=== PATIENT | female | born 1980 | race Caucasian/White ===

== ENCOUNTER 2024-04-22 14:31 | Emergency (ER) | payer MEDICARE, SELFPAY ==
[2024-04-22 14:35] VITALS: BP 175/119; PULSE 107; RESP 18; TEMP 36.7; O2SAT 98; BMI 44.9
[2024-04-22 15:01] LABS: Basophils Percent Auto 0.2 % (0.0-3.0); Eosinophils Percent Auto 0.8 % (0.0-7.0); Hematocrit 44.5 % (33.0-51.0); Hemoglobin* 14.9 gm/dL (12.0-16.0); Immature Granulocytes Pct Auto 1.2 %; Lymphocytes Percent Auto 18.3 % (20-44); Mean Corpuscular HGB Conc 34 gm/dL (32-36); Mean Corpuscular Hemoglobin 28 pg (26-34); Mean Corpuscular Volume 85 fL (80-100); Monocytes Percent Auto 5.7 % (0.0-11.0); Neutrophils Percent Auto 73.8 % (42.0-72.0); Platelet Count* 264 K/uL (140-440); RDW Coefficient of Variation % 12.7 % (11.5-15.5); Red Blood Count 5.26 m/uL (4.00-5.20); White Blood Count* 13.08 K/uL (4.50-11.00)
--- NOTE | 2024-04-22 15:03 | ED_ITS ---
HPI - General Adult General Date Seen: 04/22/24 <Fredyd Cornejo DO - Last Filed: 04/22/24 20:41> Chief complaint: Psychiatric Problem/Disorder <Freddy Cornejo DO - Last Filed: 04/22/24 20:41> Stated complaint: Altered Mental Status [place] <Freddy Cornejo DO - Last Filed: 04/22/24 20:41> Time Seen by Provider: 04/22/24 14:39 <Freddy Cornejo DO - Last Filed: 04/22/24 20:41> Source: EMS and police <Freddy Cornejo DO - Last Filed: 04/22/24 20:41> Mode of arrival: EMS <Freddy Cornejo DO - Last Filed: 04/22/24 20:41> Limitations: altered mental status <Freddy Cornejo DO - Last Filed: 04/22/24 20:41> History of Present Illness HPI narrative: Patient is believed to be a 44-year-old female presenting to the emergency department via EMS for seems to be a likely psychiatric issue. She has been in the [facility] for the past week living out of her van. Please have gotten several calls about her. She has been very aggressive toward others in finally today when they went to remove her from the public area they found dog P mats all around the car and within the car that she has been using to go to the bathroom on. She has also urinated within her clothes. When EMS tried to bring her and she started throwing objects at them. They were forced to give her ketamine to sedate her. When asked what her name is she states she does not know. She also does not know where she is or where she is from or how long she has been here. Police were able to get a name based on the registration for the van. They spoke to police in [place] where the car appears to be from. Those police then went to the residence on the registration. There other informed the patient moved out 6 months ago but does have a window caser. Currently trying to get hold of the window caser. Patient cannot answer ROS. EMS also states the patient has been having hallucinations claiming that she is being chased by guzmán and that her van is a space ship. <Freddy Cornejo DO - Last Filed: 04/22/24 20:41> Related Data Home medications: Home Medications ?Medication ?Instructions ?Recorded ?Confirmed Unobtainable 04/22/24 04/22/24 <Freddy Cornejo DO - Last Filed: 04/22/24 20:41> Allergies/adverse reactions: Allergies Allergy/AdvReac Type Severity Reaction Status Date / Time aspartame AdvReac Mild Headache Verified 04/23/24 19:09 morphine AdvReac Mild itching Verified 04/23/24 19:09 <Freddy Cornejo DO - Last Filed: 04/22/24 20:41> Review of Systems Status of ROS: Reports: unobtainable due to mental status <Freddy Cornejo DO - Last Filed: 04/22/24 20:41> Exam Narrative: Exam Narrative: Const: Obese, is appears very altered Eyes: PERRL, no conjunctival injection, and symmetrical lids HENT: Atraumatic external nose and ears. Moist mucous membranes. Neck: Symmetric, trachea midline, No thyromegaly. CVS: RRR, No murmurs or gallops. Peripheral pulses 2+ and equal in all extremities RESP: Unlabored respiratory effort. Clear to auscultation bilaterally. GI: Nontender/Nondistended, No rebound or guarding. MSK:Extremities w/o deformity, Normal Active ROM Skin: Warm, Dry. No rashes or lesions. Neuro: Normal Muscle tone, No focal neurological deficits. Psych: Awake, Alert, but is not oriented. Has not shown agitation. <Freddy Cornejo DO - Last Filed: 04/22/24 20:41> Const: Vital Signs, click to edit/add: Vital Signs - 24 hr 04/23/24 06:11 04/23/24 12:39 Temperature 97.8 F 98.3 F Pulse Rate [Pulse Oximeter] 79 80 Respiratory Rate 20 18 Blood Pressure [Ri ght Upper Arm] 145/84 H 144/104 H Pulse Oximetry 98 95 Oxygen Delivery Me thod Room Air Room Air <Freddy Cornejo DO - Last Filed: 04/22/24 20:41> Vital Signs, click to edit/add: Vital Signs - 24 hr 04/23/24 06:11 04/23/24 12:39 Temperature 97.8 F 98.3 F Pulse Rate [Pulse Oximeter] 79 80 Respiratory Rate 20 18 Blood Pressure [Ri ght Upper Arm] 145/84 H 144/104 H Pulse Oximetry 98 95 Oxygen Delivery Me thod Room Air Room Air <Rekha Jeter MD - Last Filed: 04/26/24 00:38> Vital Signs, click to edit/add: Vital Signs - 24 hr 04/23/24 06:11 04/23/24 12:39 Temperature 97.8 F 98.3 F Pulse Rate [Pulse Oximeter] 79 80 Respiratory Rate 20 18 Blood Pressure [Ri ght Upper Arm] 145/84 H 144/104 H Pulse Oximetry 98 95 Oxygen Delivery Me thod Room Air Room Air <Uriah Nash MD - Last Filed: 04/23/24 21:01> Course Reevaluation(s) Time of Reevaluation #1: 07:27 <Rekha Jeter MD - Last Filed: 04/26/24 00:38> Reevaluation #1: Overnight note on Dr. Corona Uribe. Patient did take her oral potassium. She did rest comfortably most of the night. She did not require any other interventions. At the end of my shift, nursing notified me that she had a very liquid stool. It was also reported that she had been having multiple loose stools and had been defecating in her van, on puppy pads. I do not think her history can not necessarily be trusted for possible potential infection. Will obtain stool C diff. No bloody diarrhea that would warrant stool culture. I have also ordered some oral potassium for this morning and have asked the nurses to repeat her basic metabolic panel and a magnesium level. Day shift will need to follow-up on these. <Rekha Jeter MD - Last Filed: 04/26/24 00:38> Reevaluation #2: Patient signed out to Dr. Nash at shift change-8:30 a.m. on 04/23. Reported is that this is a presumably 44-year-old female. Details are limited. It sounds like she is currently homeless and has been living in her van in the [facility] recently. Than is actually [facility] and [place] and the patient may be from there. She appears to be psychotic with paranoid delusions, possibly hallucinations, possibly due to decompensated schizophrenia. History about that is limited. She had been uncooperative with police and EMS so did receive ketamine on scene for them to transport her to the ER. She was placed on a [address] Cornejo yesterday when she arrived. Here in the ER she had been much more cooperative and apparently agreed voluntarily to receive an IM shot of Zyprexa. She was found to be hypokalemic and has been taking her potassium supplements cooperatively. She clearly needs inpatient mental health treatment. Workup for medical clearance as included: Labs show a mild leukocytosis with a white count of 13. Hemoglobin normal at 14.9, platelet count 264. Actually suspect she may have been dehydrated with some hemoconcentration. Sodium 139, chloride 104, bicarb 28, anion gap 7, BUN 10, creatinine 0.6, glucose 92, calcium 9.6, magnesium 2.0, total bilirubin 0.7, AST 23, ALT 21, alk-phos 75 potassium was low at 2.7 yesterday evening. She received oral potassium supplements (50 mg oral on some potassium bicarbonate, 40 mEq of potassium chloride). Recheck potassium this morning was up to 3.0. An additional 40 mg of potassium chloride was given this morning. Urinalysis negative. She had a watery diarrhea stool overnight. C diff is negative. Salicylate, Tylenol level undetectable. Urine drug screen positive for THC. Alcohol level undetectable. She is cooperative this morning. The nurses report that she is working on ordering breakfast. I ordered additional potassium supplementation for this evening (40 mEq of potassium chloride at 6:00 p.m.). rn medical inpatient services should be available by about 9:00 a.m. to help work on finding inpatient mental health placement. Patient did order breakfast. However she disrobed in a breakfast with no clothes on. She was not agitated or combative. Patient was seen by social work. Patient refused to talk to social Work. Patient seemed to have paranoid delusions that the social media specialist may be an and posterior. field crop ii farmworker was not able to complete a detailed mental health assessment for the patient. We ordered additional Zyprexa-10 mg ODT at about 11:00 a.m.. Patient seemed increasingly agitated and delusional. She was refusing the Zyprexa ODT. She tried to leave the ER and push past nursing staff but then did come back to her bed. I reassessed the patient. She seemed paranoid. She was very suspicious about staff, any medications we had offered. She says she needed ?an insole rasper and blind? and that she wanted us to bring someone that she is familiar with to talk to her. I asked her to tell me more about the people she knows of that I can call them. She says that we should know and that we should check the [place]. She says that she has been in the hospital in [place] recently. We did request records from the hospital and [facility]. They indicate that she has been hospitalized recently for bipolar and anxiety. They will fax records, and they may arrive later today. The patient was refusing Zyprexa ODT. She initially put the pill in her mouth but then seemed to spit it out into her emesis bag. Therefore we did do a ?Dr. Erickson?. With a show of force from the personnel she did calmly receive a 10 mg Zyprexa intramuscular shot into her left deltoid. We were able to get faxed records from [facility] in [place] She was seen in the ER on 02/16/2024 with a diagnosis of depression. According to their ER notes she has a past history of anxiety, depression, fibromyalgia, elevated BMI, he and she had presented that day requesting mental health evaluation. She was apparently discharged home. Was in the [facility] ER on 02/08/2024. Diagnosed with bipolar affective disorder and acute alcoholic intoxication. According to their notes she is homeless. She had been grieving the anniversary of the of her significant other. Apparently that night she had been smoking, singing songs he and was disturbing her residence near where she her band was parked. She was brought to the ER by police. According to those records she has a prior residence in the [facility] and drove her van a year ago to live in [facility] and. [place] ? He she apparently stayed through the winter at the [facility] residence. With improving we whether she was using her van at times as well. Records indicate she has no regular primary care or psychiatric care. She was thought to have hypomania in the setting of bipolar. Recheck-patient has presumptively been expected to [facility], in [place], [place]. However they would like to see her potassium higher before they can accept her. I ordered additional potassium. Will recheck potassium again in 2 hours at 7:30 p.m.. Recheck-repeat potassium up to 3.6. Recheck-patient is accepted to [facility] at about 8:45 p.m.. I informed the patient about inpatient mental health placement and transfer to [place]. She was angry. She says that the only treatment she needs to go outside and get some fresh air. She is not combative or violent. She speaks to me in a very firm, angry tone of voice but is not shouting at this time. When I informed her that she will be going to inpatient care. She seems resigned. She wants to make sure that she gets to bring her belongings with her. Discussed with the nurses. At this point she is not acutely agitated requiring Dr. OLMEDO or IM meds. I did order another p.r.n. dose of Zyprexa to use if needed. <Uriah Nash MD - Last Filed: 04/23/24 21:01> Vital Signs Vital signs: Initial Vital Signs Temperature 98.1 F 04/22/24 14:35 Temperature Source Temporal Artery Scan 04/22/24 14:35 Pulse Rate 107 H 04/22/24 14:35 Respiratory Rate 18 04/22/24 14:35 Blood Pressure 175/119 H 04/22/24 14:35 Blood Pressure Mean 137 H 04/22/24 14:35 Pulse Oximetry 98 04/22/24 14:35 Oxygen Delivery Method Room Air 04/22/24 14:35 Vital Signs Temperature 98.1 F 04/22/24 14:35 Pulse Rate 107 H 04/22/24 14:35 Respiratory Rate 18 04/22/24 14:35 Blood Pressure 175/119 H 04/22/24 14:35 Pulse Oximetry 98 04/22/24 14:35 Oxygen Delivery Method Room Air 04/22/24 14:35 Temperature 98.3 F 04/23/24 12:39 Pulse Rate 80 04/23/24 12:39 Respiratory Rate 18 04/23/24 12:39 Blood Pressure 144/104 H 04/23/24 12:39 Pulse Oximetry 95 04/23/24 12:39 Oxygen Delivery Method Room Air 04/23/24 12:39 <Freddy Cornejo DO - Last Filed: 04/22/24 20:41> Initial Vital Signs Temperature 98.1 F 04/22/24 14:35 Temperature Source Temporal Artery Scan 04/22/24 14:35 Pulse Rate 107 H 04/22/24 14:35 Respiratory Rate 18 04/22/24 14:35 Blood Pressure 175/119 H 04/22/24 14:35 Blood Pressure Mean 137 H 04/22/24 14:35 Pulse Oximetry 98 04/22/24 14:35 Oxygen Delivery Method Room Air 04/22/24 14:35 Vital Signs Temperature 98.1 F 04/22/24 14:35 Pulse Rate 107 H 04/22/24 14:35 Respiratory Rate 18 04/22/24 14:35 Blood Pressure 175/119 H 04/22/24 14:35 Pulse Oximetry 98 04/22/24 14:35 Oxygen Delivery Method Room Air 04/22/24 14:35 Temperature 98.3 F 04/23/24 12:39 Pulse Rate 80 04/23/24 12:39 Respiratory Rate 18 04/23/24 12:39 Blood Pressure 144/104 H 04/23/24 12:39 Pulse Oximetry 95 04/23/24 12:39 Oxygen Delivery Method Room Air 04/23/24 12:39 <Rekha Jeter MD - Last Filed: 04/26/24 00:38> Initial Vital Signs Temperature 98.1 F 04/22/24 14:35 Temperature Source Temporal Artery Scan 04/22/24 14:35 Pulse Rate 107 H 04/22/24 14:35 Respiratory Rate 18 04/22/24 14:35 Blood Pressure 175/119 H 04/22/24 14:35 Blood Pressure Mean 137 H 04/22/24 14:35 Pulse Oximetry 98 04/22/24 14:35 Oxygen Delivery Method Room Air 04/22/24 14:35 Vital Signs Temperature 98.1 F 04/22/24 14:35 Pulse Rate 107 H 04/22/24 14:35 Respiratory Rate 18 04/22/24 14:35 Blood Pressure 175/119 H 04/22/24 14:35 Pulse Oximetry 98 04/22/24 14:35 Oxygen Delivery Method Room Air 04/22/24 14:35 Temperature 98.3 F 04/23/24 12:39 Pulse Rate 80 06/24/24 12:39 Respiratory Rate 18 04/23/24 12:39 Blood Pressure 144/104 H 04/23/24 12:39 Pulse Oximetry 95 04/23/24 12:39 Oxygen Delivery Method Room Air 04/23/24 12:39 <Uriah Nash MD - Last Filed: 04/23/24 21:01> Medications Administered Medications: Discontinued Medications Generic Name Dose Route Start Last Admin Trade Name Freq PRN Reason Stop Dose Admin Olanzapine 10 mg 04/22/24 15:28 04/22/24 16:04 Olanzapine 5 Mg Tab.Rapdis PO 04/22/24 15:29 10 mg ONCE ONE Administration Olanzapine 10 mg 04/23/24 10:57 04/23/24 11:55 Olanzapine 5 Mg Tab.Rapdis PO 04/23/24 10:58 Not Given ONCE ONE Olanzapine 10 mg 04/23/24 11:48 04/23/24 11:52 Olanzapine 5 Mg/Ml Inj IM 04/23/24 11:49 10 mg ONCE ONE Administration Olanzapine 10 mg 04/23/24 20:58 04/23/24 21:29 Olanzapine 5 Mg/Ml Inj IM 04/23/24 20:59 Not Given ONCE ONE Potassium Bicarbonate 50 meq 04/22/24 15:28 04/23/24 05:06 Potassium Bicarb 25 Meq Effervescent Tab PO 04/22/24 15:29 50 meq ONCE ONE Administration Potassium Bicarbonate 50 meq 04/23/24 17:30 04/23/24 17:40 Potassium Bicarb 25 Meq Effervescent Tab PO 04/23/24 23:31 50 meq Q2H JAZZ Administration Potassium Chloride 40 meq 04/23/24 07:26 04/23/24 08:18 Potassium Chloride 10 Meq Capsule Er PO 04/23/24 07:27 40 meq ONCE ONE Administration <Freddy Cornejo DO - Last Filed: 04/22/24 20:41> Discontinued Medications Generic Name Dose Route Start Last Admin Trade Name Freq PRN Reason Stop Dose Admin Olanzapine 10 mg 04/22/24 15:28 04/22/24 16:04 Olanzapine 5 Mg Tab.Rapdis PO 04/22/24 15:29 10 mg ONCE ONE Administration Olanzapine 10 mg 04/23/24 10:57 04/23/24 11:55 Olanzapine 5 Mg Tab.Rapdis PO 04/23/24 10:58 Not Given ONCE ONE Olanzapine 10 mg 04/23/24 11:48 04/23/24 11:52 Olanzapine 5 Mg/Ml Inj IM 04/23/24 11:49 10 mg ONCE ONE Administration Olanzapine 10 mg 04/23/24 20:58 04/23/24 21:29 Olanzapine 5 Mg/Ml Inj IM 04/23/24 20:59 Not Given ONCE ONE Potassium Bicarbonate 50 meq 04/22/24 15:28 04/23/24 05:06 Potassium Bicarb 25 Meq Effervescent Tab PO 04/22/24 15:29 50 meq ONCE ONE Administration Potassium Bicarbonate 50 meq 04/23/24 17:30 04/23/24 17:40 Potassium Bicarb 25 Meq Effervescent Tab PO 04/23/24 23:31 50 meq Q2H JAZZ Administration Potassium Chloride 40 meq 04/23/24 07:26 04/23/24 08:18 Potassium Chloride 10 Meq Capsule Er PO 04/23/24 07:27 40 meq ONCE ONE Administration <Rekha Jeter MD - Last Filed: 04/26/24 00:38> Discontinued Medications Generic Name Dose Route Start Last Admin Trade Name Freq PRN Reason Stop Dose Admin Olanzapine 10 mg 04/22/24 15:28 04/22/24 16:04 Olanzapine 5 Mg Tab.Rapdis PO 04/22/24 15:29 10 mg ONCE ONE Administration Olanzapine 10 mg 04/23/24 10:57 04/23/24 11:55 Olanzapine 5 Mg Tab.Rapdis PO 04/23/24 10:58 Not Given ONCE ONE Olanzapine 10 mg 04/23/24 11:48 04/23/24 11:52 Olanzapine 5 Mg/Ml Inj IM 04/23/24 11:49 10 mg ONCE ONE Administration Olanzapine 10 mg 04/23/24 20:58 04/23/24 21:29 Olanzapine 5 Mg/Ml Inj IM 04/23/24 20:59 Not Given ONCE ONE Potassium Bicarbonate 50 meq 04/22/24 15:28 04/23/24 05:06 Potassium Bicarb 25 Meq Effervescent Tab PO 04/22/24 15:29 50 meq ONCE ONE Administration Potassium Bicarbonate 50 meq 04/23/24 17:30 04/23/24 17:40 Potassium Bicarb 25 Meq Effervescent Tab PO 04/23/24 23:31 50 meq Q2H JAZZ Administration Potassium Chloride 40 meq 04/23/24 07:26 04/23/24 08:18 Potassium Chloride 10 Meq Capsule Er PO 04/23/24 07:27 40 meq ONCE ONE Administration <Uriah Nash MD - Last Filed: 04/23/24 21:01> Medical Decision Making MDM Narrative Medical decision making narrative: Patient is a 44-year-old female presenting for what sounds to be a psychiatric episode. She appears to be schizophrenic with her delusions and hallucinations. We will do a standard medical evaluation including CMP, drug screen, urinalysis, acetaminophen, CBC, COVID/flu/RSV, EtOH, salicylate and acetaminophen levels, magnesium. Michell to urinalysis and urine drug screen. CBC shows a white count of 13.08 but this time I do not see any other obvious signs of infection and this is very nonspecific. She does not appear to be encephalopathic or of any signs of meningitis with a negative Kernig's and Brudzinski sign she definitely sounds much more schizophrenic. We were able leg get information that she does have a window caser and [place] so this makes me more likely that she has a previously diagnosed psychiatric disorder. Her CMP returned with potassium 2.7. We tried to give the patient both oral and IV potassium but she is absolutely refusing. States she will only eat it and bananas and wants to know home the bananas she needs to eat. She then refused to take any potassium until we could recite the periodic table. We tried to admitted to the hospitalist in [place] but considering we do not have psych available and they are limited experience with managing psych medications to this extent they do not feel comfortable accepting the patient. We tried to admit the patient to several other psych hospitals that had to medical facilities but not have beds available. We will continue to try and transfer her in the morning. Patient signed out to my colleague Dr. Santoro. <Freddy Cornejo DO - Last Filed: 04/22/24 20:41> Lab Data Labs: Lab Results 04/22/24 04/22/24 04/22/24 Range/Units 09:40 14:55 17:03 WBC 13.08 H (4.50-11.00) K/uL RBC 5.26 H (4.00-5.20) m/uL Hgb 14.9 (12.0-16.0) gm/dL Hct 44.5 (33.0-51.0) % MCV 85 (80-100) fL MCH 28 (26-34) pg MCHC 34 (32-36) gm/dL RDW Coeff of Donavon 12.7 (11.5-15.5) % Plt Count 264 (140-440) K/uL Neut % (Auto) 73.8 H (42.0-72.0) % Lymph % (Auto) 18.3 L (20-44) % [place] % (Auto) 5.7 (0.0-11.0) % Eos % (Auto) 0.8 (0.0-7.0) % Baso % (Auto) 0.2 (0.0-3.0) % Neut # (Auto) 9.70 H (1.7-7.0) K/uL Lymph # (Auto) 2.40 (0.90-2.90) K/uL [place] # (Auto) 0.70 (0.00-0.90) K/UL Eos # (Auto) 0.10 (0.00-0.50) K/uL Baso # (Auto) 0.00 (0.00-0.30) K/uL Abs Immat Gran (auto) 0.20 (0.00-0.30) K/uL Imm/Tot Granulo (auto) 1.2 % Sodium 139 (135-149) mmol/L Potassium 2.7 L* (3.6-5.1) mmol/L Chloride 104 (96-114) mmol/L Carbon Dioxide 24 (20-32) mmol/L Anion Gap 11 (7-15) mEq/L BUN 12 (5-24) mg/dL Creatinine 0.8 (0.5-1.5) mg/dL Estimated Creat Clear 80.75 Estimated GFR 93 ml/min Glucose 122 H (60-115) mg/dL Calcium 10.0 (8.4-10.6) mg/dL Magnesium 2.1 (1.5-2.6) mg/dL Total Bilirubin 0.7 (0.1-1.5) mg/dL AST 23 (12-35) U/L ALT 21 (4-35) U/L Alkaline Phosphatase 75 (40-150) U/L Total Protein 7.7 (6.0-8.3) g/dL Albumin 4.8 (3.3-5.0) g/dL Urine Color Light yellow (Yellow) Urine Appearance Clear (Clear) Urine pH 6.0 (5.0-8.5) Ur Specific [place] <= 1.005 (1.000-1.030) Urine Protein Negative (Negative) Urine Glucose (UA) Negative (Negative) Urine Ketones 1+ A (Negative) Urine Blood Negative (Negative) Urine Nitrite Negative (Negative) Urine Bilirubin Negative (Negative) Urine Urobilinogen 0.2 (0.2-1.0) Ur Leukocyte Esterase Negative (Negative) Urine RBC 0-2 (0-2) Urine WBC 0-2 (0-5) Ur Squamous Epith Cells None (None-Few) Urine Bacteria None (None) Stl C. diff Tox B Gene (Negative) Stl C. diff [id number]-NAP1-BI (Negative) Salicylates < 1.0 L (1.0-10) mg/dL Urine Opiates Screen Negative (Negative) Ur Oxycodone Screen Negative (Negative) Urine Methadone Screen Negative (Negative) Acetaminophen < 10.0 L (10.0-30.0) ug/mL Ur Barbiturates Screen Negative (Negative) U Tricyclic Antidepress Negative (Negative) Ur Phencyclidine Scrn Negative (Negative) Ur Amphetamines Screen Negative (Negative) U Methamphetamines Scrn Negative (Negative) U Benzodiazepines Scrn Negative (Negative) Urine Cocaine Screen Negative (Negative) U Marijuana (THC) Screen POSITIVE A (Negative) Ur Drug Screen Comment See Note Ethyl Alcohol < 0.01 L (0.01-0.03) % SARS-CoV-2 (PCR) Negative SARS-CoV-2 (Negative) Influenza Type A (PCR) Negative PCR FLU A (Negative) Influenza Type B (PCR) Negative PCR FLU B (Negative) RSV (PCR) Negative PCR RSV (Negative) Lab Acknowledgement 04/22/24 04/22/24 04/23/24 Range/Units 18:09 18:19 07:09 WBC (4.50-11.00) K/uL RBC (4.00-5.20) m/uL Hgb (12.0-16.0) gm/dL Hct (33.0-51.0) % MCV (80-100) fL MCH (26-34) pg MCHC (32-36) gm/dL RDW Coeff of Donavon (11.5-15.5) % Plt Count (140-440) K/uL Neut % (Auto) (42.0-72.0) % Lymph % (Auto) (20-44) % [place] % (Auto) (0.0-11.0) % Eos % (Auto) (0.0-7.0) % Baso % (Auto) (0.0-3.0) % Neut # (Auto) (1.7-7.0) K/uL Lymph # (Auto) (0.90-2.90) K/uL [place] # (Auto) (0.00-0.90) K/UL Eos # (Auto) (0.00-0.50) K/uL Baso # (Auto) (0.00-0.30) K/uL Abs Immat Gran (auto) (0.00-0.30) K/uL Imm/Tot Granulo (auto) % Sodium (135-149) mmol/L Potassium (3.6-5.1) mmol/L Chloride (96-114) mmol/L Carbon Dioxide (20-32) mmol/L Anion Gap (7-15) mEq/L BUN (5-24) mg/dL Creatinine (0.5-1.5) mg/dL Estimated Creat Clear Estimated GFR ml/min Glucose (60-115) mg/dL Calcium (8.4-10.6) mg/dL Magnesium (1.5-2.6) mg/dL Total Bilirubin (0.1-1.5) mg/dL AST (12-35) U/L ALT (4-35) U/L Alkaline Phosphatase (40-150) U/L Total Protein (6.0-8.3) g/dL Albumin (3.3-5.0) g/dL Urine Color (Yellow) Urine Appearance (Clear) Urine pH (5.0-8.5) Ur Specific [place] (1.000-1.030) Urine Protein (Negative) Urine Glucose (UA) (Negative) Urine Ketones (Negative) Urine Blood (Negative) Urine Nitrite (Negative) Urine Bilirubin (Negative) Urine Urobilinogen (0.2-1.0) Ur Leukocyte Esterase (Negative) Urine RBC (0-2) Urine WBC (0-5) Ur Squamous Epith Cells (None-Few) Urine Bacteria (None) Stl C. diff Tox B Gene Negative (Negative) Stl C. diff [id number] PRESUMPTIVE NEGATIVE (Negative) Salicylates (1.0-10) mg/dL Urine Opiates Screen (Negative) Ur Oxycodone Screen (Negative) Urine Methadone Screen (Negative) Acetaminophen (10.0-30.0) ug/mL Ur Barbiturates Screen (Negative) U Tricyclic Antidepress (Negative) Ur Phencyclidine Scrn (Negative) Ur Amphetamines Screen (Negative) U Methamphetamines Scrn (Negative) U Benzodiazepines Scrn (Negative) Urine Cocaine Screen (Negative) U Marijuana (THC) Screen (Negative) Ur Drug Screen Comment Ethyl Alcohol (0.01-0.03) % SARS-CoV-2 (PCR) (Negative) Influenza Type A (PCR) (Negative) Influenza Type B (PCR) (Negative) RSV (PCR) (Negative) Lab Acknowledgement Test Added Test Added 04/23/24 04/23/24 04/23/24 Range/Units 08:05 15:34 19:39 WBC (4.50-11.00) K/uL RBC (4.00-5.20) m/uL Hgb (12.0-16.0) gm/dL Hct (33.0-51.0) % MCV (80-100) fL MCH (26-34) pg MCHC (32-36) gm/dL RDW Coeff of Donavon (11.5-15.5) % Plt Count (140-440) K/uL Neut % (Auto) (42.0-72.0) % Lymph % (Auto) (20-44) % [place] % (Auto) (0.0-11.0) % Eos % (Auto) (0.0-7.0) % Baso % (Auto) (0.0-3.0) % Neut # (Auto) (1.7-7.0) K/uL Lymph # (Auto) (0.90-2.90) K/uL [place] # (Auto) (0.00-0.90) K/UL Eos # (Auto) (0.00-0.50) K/uL Baso # (Auto) (0.00-0.30) K/uL Abs Immat Gran (auto) (0.00-0.30) K/uL Imm/Tot Granulo (auto) % Sodium 139 138 (135-149) mmol/L Potassium 3.0 L 3.2 L 3.6 (3.6-5.1) mmol/L Chloride 104 104 (96-114) mmol/L Carbon Dioxide 28 26 (20-32) mmol/L Anion Gap 7 8 (7-15) mEq/L BUN 10 10 (5-24) mg/dL Creatinine 0.6 0.6 (0.5-1.5) mg/dL Estimated Creat Clear 107.67 107.67 Estimated GFR 113 113 ml/min Glucose 92 112 (60-115) mg/dL Calcium 9.6 9.1 (8.4-10.6) mg/dL Magnesium 2.0 (1.5-2.6) mg/dL Total Bilirubin (0.1-1.5) mg/dL AST (12-35) U/L ALT (4-35) U/L Alkaline Phosphatase (40-150) U/L Total Protein (6.0-8.3) g/dL Albumin (3.3-5.0) g/dL Urine Color (Yellow) Urine Appearance (Clear) Urine pH (5.0-8.5) Ur Specific [place] (1.000-1.030) Urine Protein (Negative) Urine Glucose (UA) (Negative) Urine Ketones (Negative) Urine Blood (Negative) Urine Nitrite (Negative) Urine Bilirubin (Negative) Urine Urobilinogen (0.2-1.0) Ur Leukocyte Esterase (Negative) Urine RBC (0-2) Urine WBC (0-5) Ur Squamous Epith Cells (None-Few) Urine Bacteria (None) Stl C. diff Tox B Gene (Negative) Stl C. diff 027-NAP1-BI (Negative) Salicylates (1.0-10) mg/dL Urine Opiates Screen (Negative) Ur Oxycodone Screen (Negative) Urine Methadone Screen (Negative) Acetaminophen (10.0-30.0) ug/mL Ur Barbiturates Screen (Negative) U Tricyclic Antidepress (Negative) Ur Phencyclidine Scrn (Negative) Ur Amphetamines Screen (Negative) U Methamphetamines Scrn (Negative) U Benzodiazepines Scrn (Negative) Urine Cocaine Screen (Negative) U Marijuana (THC) Screen (Negative) Ur Drug Screen Comment Ethyl Alcohol (0.01-0.03) % SARS-CoV-2 (PCR) (Negative) Influenza Type A (PCR) (Negative) Influenza Type B (PCR) (Negative) RSV (PCR) (Negative) Lab Acknowledgement <Freddy Olmedoram, DO - Last Filed: 04/22/24 20:41> Lab Results 04/22/24 04/22/24 04/22/24 Range/Units 09:40 14:55 17:03 WBC 13.08 H (4.50-11.00) K/uL RBC 5.26 H (4.00-5.20) m/uL Hgb 14.9 (12.0-16.0) gm/dL Hct 44.5 (33.0-51.0) % MCV 85 (80-100) fL MCH 28 (26-34) pg MCHC 34 (32-36) gm/dL RDW Coeff of [place] 12.7 (11.5-15.5) % Plt Count 264 (140-440) K/uL Neut % (Auto) 73.8 H (42.0-72.0) % Lymph % (Auto) 18.3 L (20-44) % [place] % (Auto) 5.7 (0.0-11.0) % Eos % (Auto) 0.8 (0.0-7.0) % Baso % (Auto) 0.2 (0.0-3.0) % Neut # (Auto) 9.70 H (1.7-7.0) K/uL Lymph # (Auto) 2.40 (0.90-2.90) K/uL [place] # (Auto) 0.70 (0.00-0.90) K/UL Eos # (Auto) 0.10 (0.00-0.50) K/uL Baso # (Auto) 0.00 (0.00-0.30) K/uL Abs Immat Gran (auto) 0.20 (0.00-0.30) K/uL Imm/Tot Granulo (auto) 1.2 % Sodium 139 (135-149) mmol/L Potassium 2.7 L* (3.6-5.1) mmol/L Chloride 104 (96-114) mmol/L Carbon Dioxide 24 (20-32) mmol/L Anion Gap 11 (7-15) mEq/L BUN 12 (5-24) mg/dL Creatinine 0.8 (0.5-1.5) mg/dL Estimated Creat Clear 80.75 Estimated GFR 93 ml/min Glucose 122 H (60-115) mg/dL Calcium 10.0 (8.4-10.6) mg/dL Magnesium 2.1 (1.5-2.6) mg/dL Total Bilirubin 0.7 (0.1-1.5) mg/dL AST 23 (12-35) U/L ALT 21 (4-35) U/L Alkaline Phosphatase 75 (40-150) U/L Total Protein 7.7 (6.0-8.3) g/dL Albumin 4.8 (3.3-5.0) g/dL Urine Color Light yellow (Yellow) Urine Appearance Clear (Clear) Urine pH 6.0 (5.0-8.5) Ur Specific [place] <= 1.005 (1.000-1.030) Urine Protein Negative (Negative) Urine Glucose (UA) Negative (Negative) Urine Ketones 1+ A (Negative) Urine Blood Negative (Negative) Urine Nitrite Negative (Negative) Urine Bilirubin Negative (Negative) Urine Urobilinogen 0.2 (0.2-1.0) Ur Leukocyte Esterase Negative (Negative) Urine RBC 0-2 (0-2) Urine WBC 0-2 (0-5) Ur Squamous Epith Cells None (None-Few) Urine Bacteria None (None) Stl C. diff Tox B Gene (Negative) Stl C. diff 027-NAP1-BI (Negative) Salicylates < 1.0 L (1.0-10) mg/dL Urine Opiates Screen Negative (Negative) Ur Oxycodone Screen Negative (Negative) Urine Methadone Screen Negative (Negative) Acetaminophen < 10.0 L (10.0-30.0) ug/mL Ur Barbiturates Screen Negative (Negative) U Tricyclic Antidepress Negative (Negative) Ur Phencyclidine Scrn Negative (Negative) Ur Amphetamines Screen Negative (Negative) U Methamphetamines Scrn Negative (Negative) U Benzodiazepines Scrn Negative (Negative) Urine Cocaine Screen Negative (Negative) U Marijuana (THC) Screen POSITIVE A (Negative) Ur Drug Screen Comment See Note Ethyl Alcohol < 0.01 L (0.01-0.03) % SARS-CoV-2 (PCR) Negative SARS-CoV-2 (Negative) Influenza Type A (PCR) Negative PCR FLU A (Negative) Influenza Type B (PCR) Negative PCR FLU B (Negative) RSV (PCR) Negative PCR RSV (Negative) Lab Acknowledgement 04/22/24 04/22/24 04/23/24 Range/Units 18:09 18:19 07:09 WBC (4.50-11.00) K/uL RBC (4.00-5.20) m/uL Hgb (12.0-16.0) gm/dL Hct (33.0-51.0) % MCV (80-100) fL MCH (26-34) pg MCHC (32-36) gm/dL RDW Coeff of [place] (11.5-15.5) % Plt Count (140-440) K/uL Neut % (Auto) (42.0-72.0) % Lymph % (Auto) (20-44) % [place] % (Auto) (0.0-11.0) % Eos % (Auto) (0.0-7.0) % Baso % (Auto) (0.0-3.0) % Neut # (Auto) (1.7-7.0) K/uL Lymph # (Auto) (0.90-2.90) K/uL [place] # (Auto) (0.00-0.90) K/UL Eos # (Auto) (0.00-0.50) K/uL Baso # (Auto) (0.00-0.30) K/uL Abs Immat Gran (auto) (0.00-0.30) K/uL Imm/Tot Granulo (auto) % Sodium (135-149) mmol/L Potassium (3.6-5.1) mmol/L Chloride (96-114) mmol/L Carbon Dioxide (20-32) mmol/L Anion Gap (7-15) mEq/L BUN (5-24) mg/dL Creatinine (0.5-1.5) mg/dL Estimated Creat Clear Estimated GFR ml/min Glucose (60-115) mg/dL Calcium (8.4-10.6) mg/dL Magnesium (1.5-2.6) mg/dL Total Bilirubin (0.1-1.5) mg/dL AST (12-35) U/L ALT (4-35) U/L Alkaline Phosphatase (40-150) U/L Total Protein (6.0-8.3) g/dL Albumin (3.3-5.0) g/dL Urine Color (Yellow) Urine Appearance (Clear) Urine pH (5.0-8.5) Ur Specific [place] (1.000-1.030) Urine Protein (Negative) Urine Glucose (UA) (Negative) Urine Ketones (Negative) Urine Blood (Negative) Urine Nitrite (Negative) Urine Bilirubin (Negative) Urine Urobilinogen (0.2-1.0) Ur Leukocyte Esterase (Negative) Urine RBC (0-2) Urine WBC (0-5) Ur Squamous Epith Cells (None-Few) Urine Bacteria (None) Stl C. diff Tox B Gene Negative (Negative) Stl C. diff 027-NAP1-BI PRESUMPTIVE NEGATIVE (Negative) Salicylates (1.0-10) mg/dL Urine Opiates Screen (Negative) Ur Oxycodone Screen (Negative) Urine Methadone Screen (Negative) Acetaminophen (10.0-30.0) ug/mL Ur Barbiturates Screen (Negative) U Tricyclic Antidepress (Negative) Ur Phencyclidine Scrn (Negative) Ur Amphetamines Screen (Negative) U Methamphetamines Scrn (Negative) U Benzodiazepines Scrn (Negative) Urine Cocaine Screen (Negative) U Marijuana (THC) Screen (Negative) Ur Drug Screen Comment Ethyl Alcohol (0.01-0.03) % SARS-CoV-2 (PCR) (Negative) Influenza Type A (PCR) (Negative) Influenza Type B (PCR) (Negative) RSV (PCR) (Negative) Lab Acknowledgement Test Added Test Added 04/23/24 04/23/24 04/23/24 Range/Units 08:05 15:34 19:39 WBC (4.50-11.00) K/uL RBC (4.00-5.20) m/uL Hgb (12.0-16.0) gm/dL Hct (33.0-51.0) % MCV (80-100) fL MCH (26-34) pg MCHC (32-36) gm/dL RDW Coeff of [place] (11.5-15.5) % Plt Count (140-440) K/uL Neut % (Auto) (42.0-72.0) % Lymph % (Auto) (20-44) % [place] % (Auto) (0.0-11.0) % Eos % (Auto) (0.0-7.0) % Baso % (Auto) (0.0-3.0) % Neut # (Auto) (1.7-7.0) K/uL Lymph # (Auto) (0.90-2.90) K/uL [place] # (Auto) (0.00-0.90) K/UL Eos # (Auto) (0.00-0.50) K/uL Baso # (Auto) (0.00-0.30) K/uL Abs Immat Gran (auto) (0.00-0.30) K/uL Imm/Tot Granulo (auto) % Sodium 139 138 (135-149) mmol/L Potassium 3.0 L 3.2 L 3.6 (3.6-5.1) mmol/L Chloride 104 104 (96-114) mmol/L Carbon Dioxide 28 26 (20-32) mmol/L Anion Gap 7 8 (7-15) mEq/L BUN 10 10 (5-24) mg/dL Creatinine 0.6 0.6 (0.5-1.5) mg/dL Estimated Creat Clear 107.67 107.67 Estimated GFR 113 113 ml/min Glucose 92 112 (60-115) mg/dL Calcium 9.6 9.1 (8.4-10.6) mg/dL Magnesium 2.0 (1.5-2.6) mg/dL Total Bilirubin (0.1-1.5) mg/dL AST (12-35) U/L ALT (4-35) U/L Alkaline Phosphatase (40-150) U/L Total Protein (6.0-8.3) g/dL Albumin (3.3-5.0) g/dL Urine Color (Yellow) Urine Appearance (Clear) Urine pH (5.0-8.5) Ur Specific [place] (1.000-1.030) Urine Protein (Negative) Urine Glucose (UA) (Negative) Urine Ketones (Negative) Urine Blood (Negative) Urine Nitrite (Negative) Urine Bilirubin (Negative) Urine Urobilinogen (0.2-1.0) Ur Leukocyte Esterase (Negative) Urine RBC (0-2) Urine WBC (0-5) Ur Squamous Epith Cells (None-Few) Urine Bacteria (None) Stl C. diff Tox B Gene (Negative) Stl C. diff 027-NAP1-BI (Negative) Salicylates (1.0-10) mg/dL Urine Opiates Screen (Negative) Ur Oxycodone Screen (Negative) Urine Methadone Screen (Negative) Acetaminophen (10.0-30.0) ug/mL Ur Barbiturates Screen (Negative) U Tricyclic Antidepress (Negative) Ur Phencyclidine Scrn (Negative) Ur Amphetamines Screen (Negative) U Methamphetamines Scrn (Negative) U Benzodiazepines Scrn (Negative) Urine Cocaine Screen (Negative) U Marijuana (THC) Screen (Negative) Ur Drug Screen Comment Ethyl Alcohol (0.01-0.03) % SARS-CoV-2 (PCR) (Negative) Influenza Type A (PCR) (Negative) Influenza Type B (PCR) (Negative) RSV (PCR) (Negative) Lab Acknowledgement <Rekha Jeter MD - Last Filed: 04/26/24 00:38> Lab Results 04/22/24 04/22/24 04/22/24 Range/Units 09:40 14:55 17:03 WBC 13.08 H (4.50-11.00) K/uL RBC 5.26 H (4.00-5.20) m/uL Hgb 14.9 (12.0-16.0) gm/dL Hct 44.5 (33.0-51.0) % MCV 85 (80-100) fL MCH 28 (26-34) pg MCHC 34 (32-36) gm/dL RDW Coeff of [place] 12.7 (11.5-15.5) % Plt Count 264 (140-440) K/uL Neut % (Auto) 73.8 H (42.0-72.0) % Lymph % (Auto) 18.3 L (20-44) % [place] % (Auto) 5.7 (0.0-11.0) % Eos % (Auto) 0.8 (0.0-7.0) % Baso % (Auto) 0.2 (0.0-3.0) % Neut # (Auto) 9.70 H (1.7-7.0) K/uL Lymph # (Auto) 2.40 (0.90-2.90) K/uL [place] # (Auto) 0.70 (0.00-0.90) K/UL Eos # (Auto) 0.10 (0.00-0.50) K/uL Baso # (Auto) 0.00 (0.00-0.30) K/uL Abs Immat Gran (auto) 0.20 (0.00-0.30) K/uL Imm/Tot Granulo (auto) 1.2 % Sodium 139 (135-149) mmol/L Potassium 2.7 L* (3.6-5.1) mmol/L Chloride 104 (96-114) mmol/L Carbon Dioxide 24 (20-32) mmol/L Anion Gap 11 (7-15) mEq/L BUN 12 (5-24) mg/dL Creatinine 0.8 (0.5-1.5) mg/dL Estimated Creat Clear 80.75 Estimated GFR 93 ml/min Glucose 122 H (60-115) mg/dL Calcium 10.0 (8.4-10.6) mg/dL Magnesium 2.1 (1.5-2.6) mg/dL Total Bilirubin 0.7 (0.1-1.5) mg/dL AST 23 (12-35) U/L ALT 21 (4-35) U/L Alkaline Phosphatase 75 (40-150) U/L Total Protein 7.7 (6.0-8.3) g/dL Albumin 4.8 (3.3-5.0) g/dL Urine Color Light yellow (Yellow) Urine Appearance Clear (Clear) Urine pH 6.0 (5.0-8.5) Ur Specific [place] <= 1.005 (1.000-1.030) Urine Protein Negative (Negative) Urine Glucose (UA) Negative (Negative) Urine Ketones 1+ A (Negative) Urine Blood Negative (Negative) Urine Nitrite Negative (Negative) Urine Bilirubin Negative (Negative) Urine Urobilinogen 0.2 (0.2-1.0) Ur Leukocyte Esterase Negative (Negative) Urine RBC 0-2 (0-2) Urine WBC 0-2 (0-5) Ur Squamous Epith Cells None (None-Few) Urine Bacteria None (None) Stl C. diff Tox B Gene (Negative) Stl C. diff 027-NAP1-BI (Negative) Salicylates < 1.0 L (1.0-10) mg/dL Urine Opiates Screen Negative (Negative) Ur Oxycodone Screen Negative (Negative) Urine Methadone Screen Negative (Negative) Acetaminophen < 10.0 L (10.0-30.0) ug/mL Ur Barbiturates Screen Negative (Negative) U Tricyclic Antidepress Negative (Negative) Ur Phencyclidine Scrn Negative (Negative) Ur Amphetamines Screen Negative (Negative) U Methamphetamines Scrn Negative (Negative) U Benzodiazepines Scrn Negative (Negative) Urine Cocaine Screen Negative (Negative) U Marijuana (THC) Screen POSITIVE A (Negative) Ur Drug Screen Comment See Note Ethyl Alcohol < 0.01 L (0.01-0.03) % SARS-CoV-2 (PCR) Negative SARS-CoV-2 (Negative) Influenza Type A (PCR) Negative PCR FLU A (Negative) Influenza Type B (PCR) Negative PCR FLU B (Negative) RSV (PCR) Negative PCR RSV (Negative) Lab Acknowledgement 04/22/24 04/22/24 04/23/24 Range/Units 18:09 18:19 07:09 WBC (4.50-11.00) K/uL RBC (4.00-5.20) m/uL Hgb (12.0-16.0) gm/dL Hct (33.0-51.0) % MCV (80-100) fL MCH (26-34) pg MCHC (32-36) gm/dL RDW Coeff of [place] (11.5-15.5) % Plt Count (140-440) K/uL Neut % (Auto) (42.0-72.0) % Lymph % (Auto) (20-44) % [place] % (Auto) (0.0-11.0) % Eos % (Auto) (0.0-7.0) % Baso % (Auto) (0.0-3.0) % Neut # (Auto) (1.7-7.0) K/uL Lymph # (Auto) (0.90-2.90) K/uL [place] # (Auto) (0.00-0.90) K/UL Eos # (Auto) (0.00-0.50) K/uL Baso # (Auto) (0.00-0.30) K/uL Abs Immat Gran (auto) (0.00-0.30) K/uL Imm/Tot Granulo (auto) % Sodium (135-149) mmol/L Potassium (3.6-5.1) mmol/L Chloride (96-114) mmol/L Carbon Dioxide (20-32) mmol/L Anion Gap (7-15) mEq/L BUN (5-24) mg/dL Creatinine (0.5-1.5) mg/dL Estimated Creat Clear Estimated GFR ml/min Glucose (60-115) mg/dL Calcium (8.4-10.6) mg/dL Magnesium (1.5-2.6) mg/dL Total Bilirubin (0.1-1.5) mg/dL AST (12-35) U/L ALT (4-35) U/L Alkaline Phosphatase (40-150) U/L Total Protein (6.0-8.3) g/dL Albumin (3.3-5.0) g/dL Urine Color (Yellow) Urine Appearance (Clear) Urine pH (5.0-8.5) Ur Specific [place] (1.000-1.030) Urine Protein (Negative) Urine Glucose (UA) (Negative) Urine Ketones (Negative) Urine Blood (Negative) Urine Nitrite (Negative) Urine Bilirubin (Negative) Urine Urobilinogen (0.2-1.0) Ur Leukocyte Esterase (Negative) Urine RBC (0-2) Urine WBC (0-5) Ur Squamous Epith Cells (None-Few) Urine Bacteria (None) Stl C. diff Tox B Gene Negative (Negative) Stl C. diff 027-NAP1-BI PRESUMPTIVE NEGATIVE (Negative) Salicylates (1.0-10) mg/dL Urine Opiates Screen (Negative) Ur Oxycodone Screen (Negative) Urine Methadone Screen (Negative) Acetaminophen (10.0-30.0) ug/mL Ur Barbiturates Screen (Negative) U Tricyclic Antidepress (Negative) Ur Phencyclidine Scrn (Negative) Ur Amphetamines Screen (Negative) U Methamphetamines Scrn (Negative) U Benzodiazepines Scrn (Negative) Urine Cocaine Screen (Negative) U Marijuana (THC) Screen (Negative) Ur Drug Screen Comment Ethyl Alcohol (0.01-0.03) % SARS-CoV-2 (PCR) (Negative) Influenza Type A (PCR) (Negative) Influenza Type B (PCR) (Negative) RSV (PCR) (Negative) Lab Acknowledgement Test Added Test Added 04/23/24 04/23/24 04/23/24 Range/Units 08:05 15:34 19:39 WBC (4.50-11.00) K/uL RBC (4.00-5.20) m/uL Hgb (12.0-16.0) gm/dL Hct (33.0-51.0) % MCV (80-100) fL MCH (26-34) pg MCHC (32-36) gm/dL RDW Coeff of [place] (11.5-15.5) % Plt Count (140-440) K/uL Neut % (Auto) (42.0-72.0) % Lymph % (Auto) (20-44) % [place] % (Auto) (0.0-11.0) % Eos % (Auto) (0.0-7.0) % Baso % (Auto) (0.0-3.0) % Neut # (Auto) (1.7-7.0) K/uL Lymph # (Auto) (0.90-2.90) K/uL [place] # (Auto) (0.00-0.90) K/UL Eos # (Auto) (0.00-0.50) K/uL Baso # (Auto) (0.00-0.30) K/uL Abs Immat Gran (auto) (0.00-0.30) K/uL Imm/Tot Granulo (auto) % Sodium 139 138 (135-149) mmol/L Potassium 3.0 L 3.2 L 3.6 (3.6-5.1) mmol/L Chloride 104 104 (96-114) mmol/L Carbon Dioxide 28 26 (20-32) mmol/L Anion Gap 7 8 (7-15) mEq/L BUN 10 10 (5-24) mg/dL Creatinine 0.6 0.6 (0.5-1.5) mg/dL Estimated Creat Clear 107.67 107.67 Estimated GFR 113 113 ml/min Glucose 92 112 (60-115) mg/dL Calcium 9.6 9.1 (8.4-10.6) mg/dL Magnesium 2.0 (1.5-2.6) mg/dL Total Bilirubin (0.1-1.5) mg/dL AST (12-35) U/L ALT (4-35) U/L Alkaline Phosphatase (40-150) U/L Total Protein (6.0-8.3) g/dL Albumin (3.3-5.0) g/dL Urine Color (Yellow) Urine Appearance (Clear) Urine pH (5.0-8.5) Ur Specific [place] (1.000-1.030) Urine Protein (Negative) Urine Glucose (UA) (Negative) Urine Ketones (Negative) Urine Blood (Negative) Urine Nitrite (Negative) Urine Bilirubin (Negative) Urine Urobilinogen (0.2-1.0) Ur Leukocyte Esterase (Negative) Urine RBC (0-2) Urine WBC (0-5) Ur Squamous Epith Cells (None-Few) Urine Bacteria (None) Stl C. diff Tox B Gene (Negative) Stl C. diff 027-NAP1-BI (Negative) Salicylates (1.0-10) mg/dL Urine Opiates Screen (Negative) Ur Oxycodone Screen (Negative) Urine Methadone Screen (Negative) Acetaminophen (10.0-30.0) ug/mL Ur Barbiturates Screen (Negative) U Tricyclic Antidepress (Negative) Ur Phencyclidine Scrn (Negative) Ur Amphetamines Screen (Negative) U Methamphetamines Scrn (Negative) U Benzodiazepines Scrn (Negative) Urine Cocaine Screen (Negative) U Marijuana (THC) Screen (Negative) Ur Drug Screen Comment Ethyl Alcohol (0.01-0.03) % SARS-CoV-2 (PCR) (Negative) Influenza Type A (PCR) (Negative) Influenza Type B (PCR) (Negative) RSV (PCR) (Negative) Lab Acknowledgement <Uriah Nash MD - Last Filed: 04/23/24 21:01> Critical Care Time Critical Care Time Critical Care Time: Yes Attestation: The patient required my highest level preparedness to intervene emergently and I personally spent this critical care time directly and personally managing the patient. This critical care time included: Obtaining a history; Examining the patient; Pulse oximetry; Ordering and reviewing of studies; Arranging urgent treatment with development of a management plan; Evaluation of patients response to treatment; Frequent reassessment discussions with other providers. This critical care time was performed to assess and manage the high probability of imminent life-threatening deterioration that could result in multiorgan failure. It was exclusive of separate billable procedures and treating other patients and teaching time. <Freddy Cornejo DO - Last Filed: 04/22/24 20:41> Total Critical Care Time in Minutes: 73 <Freddy Cornejo DO - Last Filed: 04/22/24 20:41> Discharge Plan Discharge Clinical Impression: Acute hypokalemia Schizophrenia Qualifiers: Schizophrenia type: unspecified Qualified Code(s): F20.9 - Schizophrenia, unspecified <Freddy Cornejo DO - Last Filed: 04/22/24 20:41> Condition: Stable <Freddy Cornejo DO - Last Filed: 04/22/24 20:41> Prescriptions: No Action Unobtainable <Freddy Cornejo DO - Last Filed: 04/22/24 20:41> Follow Up/Referrals: Provider,Not a Local [Primary Care Provider] - <Freddy Cornejo DO - Last Filed: 04/22/24 20:41>
[2024-04-22 15:06] LABS: Slide Review Reflex No
[2024-04-22 15:16] LABS: Albumin* 4.8 g/dL (3.3-5.0)
[2024-04-22 15:17] LABS: Chloride* 104 mmol/L (96-114); Sodium* 139 mmol/L (135-149)
[2024-04-22 15:19] LABS: Anion Gap 11 mEq/L (7-15); Aspartate Amino Transferase* 23 U/L (12-35); Bilirubin Total* 0.7 mg/dL (0.1-1.5); Carbon Dioxide* 24 mmol/L (20-32); Creatinine* 0.8 mg/dL (0.5-1.5); Est. Creatinine Clearance* 80.75; Estimated Glomerular Filt Rate 93 ml/min; Total Protein* 7.7 g/dL (6.0-8.3)
[2024-04-22 15:20] LABS: Acetaminophen* < 10.0 ug/mL (10.0-30.0); Alanine Aminotransferase* 21 U/L (4-35); Alkaline Phosphatase* 75 U/L (40-150); Blood Urea Nitrogen* 12 mg/dL (5-24); Ethanol* < 0.01 % (0.01-0.03); Glucose* 122 mg/dL (60-115); Salicylate* < 1.0 mg/dL (1.0-10)
[2024-04-22 15:21] LABS: Potassium* 2.7 mmol/L (3.6-5.1)
[2024-04-22] MEDS: OLANZapine 5 MG TAB.RAPDIS 10 MG PO (16:04)
[2024-04-22 17:18] LABS: Amphetamine Screen Urine Negative (Negative); Barbiturate Screen Urine Negative (Negative); Benzodiazepines Screen Urine Negative (Negative); Cannabinoid Screen Urine POSITIVE (Negative); Cocaine Screen Urine Negative (Negative); Methadone Screen Urine Negative (Negative); Methamphetamines Screen Urine Negative (Negative); Opiate Screen Urine Negative (Negative); Oxycodone Screen Urine Negative (Negative); Phencyclidine Screen Urine Negative (Negative); Tricyclic Antidepressant Urine Negative (Negative)
[2024-04-22 18:18] LABS: Magnesium* 2.1 mg/dL (1.5-2.6)
[2024-04-22 18:25] LABS: Appearance Urine Clear (Clear); Bilirubin Urine Negative (Negative); Blood Urine Negative (Negative); Color Urine Light yellow (Yellow); Glucose Urine Negative (Negative); Ketones Urine 1+ (Negative); Leukocyte Esterase Urine Negative (Negative); Nitrite Urine Negative (Negative); Protein Urine Negative (Negative); Specific Gravity Urine <= 1.005 (1.000-1.030); Urobilinogen Urine 0.2 (0.2-1.0)
[2024-04-22 18:59] LABS: RBC Urine 0-2 (0-2); WBC Urine 0-2 (0-5)
[2024-04-22 20:23] VITALS: BP 146/114; PULSE 83; RESP 20; O2SAT 93
[2024-04-23] MEDS: POTASSIUM BICARB 25 MEQ EFFERVESCENT TAB 50 MEQ PO ×2 (05:06→17:40)
[2024-04-23 06:11] VITALS: BP 145/84; PULSE 79; RESP 20; TEMP 36.6; O2SAT 98
[2024-04-23] MEDS: POTASSIUM CHLORIDE 10 MEQ CAPSULE ER 40 MEQ PO (08:18)
[2024-04-23 08:22] LABS: C.Difficile Negative (Negative); CDIFFEPI 027 PRESUMPTIVE NEGATIVE (Negative)
[2024-04-23 08:28] LABS: Chloride* 104 mmol/L (96-114); Sodium* 139 mmol/L (135-149)
[2024-04-23 08:31] LABS: Anion Gap 7 mEq/L (7-15); Blood Urea Nitrogen* 10 mg/dL (5-24); Calcium* 9.6 mg/dL (8.4-10.6); Carbon Dioxide* 28 mmol/L (20-32); Creatinine* 0.6 mg/dL (0.5-1.5); Est. Creatinine Clearance* 107.67; Estimated Glomerular Filt Rate 113 ml/min; Glucose* 92 mg/dL (60-115)
[2024-04-23 11:07] LABS: PCR FLU A Negative PCR FLU A (Negative); PCR FLU B Negative PCR FLU B (Negative); PCR RSV Negative PCR RSV (Negative); SARS PCR* Negative SARS-CoV-2 (Negative)
--- NOTE | 2024-04-23 11:38 | PC.SOCIAL ---
Addendum entered by RAKEL Momin 04/23/24 13:48: Pt opened eyes for short time when delinquency prevention social worker was in the room, looked in the direction of the delinquency prevention social worker and said, You look different than last time I saw you. This delinquency prevention social worker has not previously met with this patient. Pt requested delinquency prevention social worker have another delinquency prevention social worker who she would recognize come in her room. Pt stated There are a lot of social workers in the world I have know and have worked with. Get one of those. Original Note: Social work: Attempted to meet with pt to complete mental health assessment. Pt refused to talk with delinquency prevention social worker. She denied that her name is Geno and would not provide her name stating, just call me, hey you. I respond to hey you.
[2024-04-23] MEDS: OLANZapine 5 MG/ML inj 10 MG IM (11:52)
[2024-04-23 12:39] VITALS: BP 144/104; PULSE 80; RESP 18; TEMP 36.8; O2SAT 95
--- NOTE | 2024-04-23 13:16 | PC.SOCIAL ---
Addendum entered by RAKEL Momin 04/23/24 13:48: Called back to [facility] and confirmed receipt of fax. Awaiting decision on admit. bible worker to follow up as needed. Original Note: Social work: Per MD order for mental health in-pt placement, called and spoke with [facility] and faxed information for review. Awaiting call back with decision on admission. Called [facility] Vulnerable adult worker to request any assistance they can provide in locating additional information on pt's identity.
[2024-04-23 16:10] LABS: Potassium* 3.2 mmol/L (3.6-5.1)
[2024-04-23 20:07] LABS: Chloride* 104 mmol/L (96-114); Sodium* 138 mmol/L (135-149)
[2024-04-23 20:08] LABS: Potassium* 3.6 mmol/L (3.6-5.1)
[2024-04-23 20:10] LABS: Creatinine* 0.6 mg/dL (0.5-1.5); Est. Creatinine Clearance* 107.67; Estimated Glomerular Filt Rate 113 ml/min
[2024-04-23 20:11] LABS: Anion Gap 8 mEq/L (7-15); Blood Urea Nitrogen* 10 mg/dL (5-24); Calcium* 9.1 mg/dL (8.4-10.6); Carbon Dioxide* 26 mmol/L (20-32); Glucose* 112 mg/dL (60-115)
== END 2024-04-23 21:39 ==
PROVIDERS: Family Medicine; Student in an Organized Health Care Education/Training Program; Emergency Provider Emergency Medicine
DX: E87.6 Hypokalemia (principal); F20.9 Schizophrenia, unspecified
CPT/HCPCS: 36415; 80048; 80053; 80143; 80179; 80306; 81001; 82077; 83735; 84132; 85025; 87493; 87631; 99285; 99291; A9270

== ENCOUNTER 2024-04-23 21:32 | Outpatient (CLI) | payer MEDICARE, SELFPAY | END 2024-04-23 21:33 | disposition home or self-care (01) | LOC: AMB 05-15 03:53 | PROVIDERS: Visit Provider Family Medicine | DX: F20.9 Schizophrenia, unspecified (principal); E87.6 Hypokalemia | CPT/HCPCS: A0425; A0429 ==